=== PATIENT | female | born 1995 | race Caucasian/White ===

== ENCOUNTER 2021-09-20 14:11 | Inpatient (IN) | payer OTHER ==
[2021-09-20] MEDS ORDERED: Magnesium Sulfate 20 gm/500 ml 20 GM/500 ML BAG ONE (14:24)
[2021-09-20] MEDS ORDERED: hydrALAZINE 20 MG/ML VIAL ONE (14:24)
[2021-09-20] MEDS: Lactated Ringer's 1,000 ML IV SCH (14:30)
[2021-09-20] MEDS ORDERED: Promethazine HCl 25 MG/ML VIAL IM PRN ×2 (14:36→19:34)
[2021-09-20] MEDS ORDERED: Calcium Gluc 4.6 MEQ/10 ML (100 MG/ML) SLOW IVP PRN (14:36)
[2021-09-20] MEDS ORDERED: Ondansetron PF 4 MG/2 ML Vial IVP PRN ×2 (14:36→19:34)
[2021-09-20] MEDS ORDERED: hydrALAZINE 20 MG/ML VIAL SLOW IVP PRN (14:36)
[2021-09-20] MEDS ORDERED: Magnesium Sulfate 20 GM/WATER 500 ML BAG IVPB SCH (14:45)
[2021-09-20] MEDS ORDERED: Lidocaine 1% (PF) 30 ML VIAL SC PRN (14:53)
[2021-09-20] MEDS: Magnesium Sulfate 20 gm/500 ml 20 GM/500 ML BAG IVPB SCH ×2 (15:00→23:17)
[2021-09-20] MEDS ORDERED: Penicillin G Potassium 5 MILL.UNITS in Sodium Chloride 0.9% 100 ML IVPB SCH (15:00)
[2021-09-20] MEDS ORDERED: NS w/ Oxytocin 30 units 500 ML IV SCH (15:00)
[2021-09-20] MEDS ORDERED: NS w/ Oxytocin 30 units 500 ML IVPB SCH (15:00)
[2021-09-20] MEDS ORDERED: Bupivacaine 0.25% HCL 30 ML VIAL ONE (15:19)
[2021-09-20 16:27] LABS: Amphetamine Not Detected (NotDetected); Barbiturates Screen Not Detected (NotDetected); Benzodiazepine Screen Not Detected (NotDetected); Cocaine Metabolite Screen Not Detected (NotDetected); Methadone Not Detected (NotDetected); Methamphetamine Not Detected (NotDetected); Opiate Screen Not Detected (NotDetected); Oxycodone Screen Not Detected (NotDetected); Phencyclidine (PCP) Not Detected (NotDetected); THC/Cannabinoid Screen Not Detected (NotDetected); Tricyclic Screen Not Detected (NotDetected)
[2021-09-20 16:33] VITALS: BMI 34.6
[2021-09-20 16:38] LABS: Syphilis Antibody Nonreactive (Nonreactive); Syphilis Antibody Index 0.07 S/CO (<1.00 Non-Reactive)
[2021-09-20] MEDS ORDERED: Labetalol HCl 100 MG/20 ML VIAL ONE (16:47)
[2021-09-20 17:13] LABS: SARS-CoV-2 NAA Rapid Test Not Detected (NotDetected)
[2021-09-20 18:16] LABS: HIV (1/2) Antibody/Antigen Non-Reactive (NonReactive); HIV 1/2 INDEX 0.06 S/CO (<1.00)
[2021-09-20] MEDS ORDERED: Labetalol HCl 100 MG/20 ML VIAL SLOW IVP PRN (18:43)
[2021-09-20] MEDS ORDERED: Fentanyl 2 mcg/Bup 0.1% Cadd 100 ML ONE (18:52)
[2021-09-20] MEDS ORDERED: Hydrocerin (Eucerin) Cream 120 gm Jar TOP PRN (19:34)
[2021-09-20] MEDS ORDERED: ePHEDrine Sulfate 50 MG/10 ML VIAL SLOW IVP PRN (19:34)
[2021-09-20] MEDS ORDERED: Lactated Ringer's 500 ML IV PRN (19:34)
[2021-09-20] MEDS ORDERED: Naloxone HCl 0.4 mg/ml Vial IVP PRN ×2 (19:34)
[2021-09-20] MEDS ORDERED: Acetaminophen 325 MG TAB PO PRN (19:34)
[2021-09-20] MEDS ORDERED: diphenhydrAMINE 50 MG/ML VIAL IVP PRN (19:34)
[2021-09-20] MEDS ORDERED: Fentanyl 2 mcg/Bupivacaine 0.1% Cassette 100 ML EPIDURAL SCH (19:45)
[2021-09-20] MEDS ORDERED: Communication Order-Pharmacy FS SCH (19:45)
[2021-09-20] MEDS: Penicillin G 2.5 MILL.units 2.5 MILL.UNITS in Premix Bag 1 BAG IVPB SCH (20:20)
[2021-09-21] MEDS: Penicillin G 2.5 MILL.units 2.5 MILL.UNITS in Premix Bag 1 BAG IVPB SCH ×4 (00:39→20:12)
[2021-09-21] MEDS: Lactated Ringer's 1,000 ML IV SCH ×4 (05:00→21:26)
[2021-09-21] MEDS ORDERED: Famotidine/PF 20 mg/2ml Vial SLOW IVP PRN (05:07)
[2021-09-21] MEDS ORDERED: Bicitra 30 ML UDCUP PO PRN (05:07)
[2021-09-21] MEDS ORDERED: Carboprost 250 MCG/ML AMP IM PRN (05:10)
[2021-09-21] MEDS ORDERED: Diphenoxylate HCl/Atropine Tablet PO PRN (05:10)
[2021-09-21] MEDS ORDERED: Misoprostol 200 MCG TAB PR PRN (05:10)
[2021-09-21] MEDS ORDERED: Misoprostol 200 MCG TAB ONE ×2 (05:12→07:29)
[2021-09-21] MEDS ORDERED: Azithromycin 500 MG VIAL ONE (05:12)
[2021-09-21] MEDS ORDERED: Carboprost 250 MCG/ML AMP ONE ×2 (05:13→06:37)
[2021-09-21] MEDS ORDERED: Azithromycin 500 MG in Sodium Chloride 0.9% 250 ML 250 ML IVPB SCH (05:30)
[2021-09-21] MEDS ORDERED: NS w/ Oxytocin 30 units 500 ML IV SCH (05:30)
[2021-09-21] MEDS ORDERED: CEFAZOLIN 2 GM in Premix Bag 1 BAG IVPB SCH (05:30)
[2021-09-21] MEDS ORDERED: Oxytocin 10 UNITS/ML VIAL ONE (05:34)
[2021-09-21] MEDS ORDERED: Dexamethasone 4 mg/ml Vial ONE (05:34)
[2021-09-21] MEDS ORDERED: Ondansetron PF 4 MG/2 ML Vial ONE (05:34)
[2021-09-21] MEDS ORDERED: Tranexamic Acid 1,000 MG in Sodium Chloride 0.9% 250 ML 250 ML IVPB PRN (05:36)
[2021-09-21] MEDS ORDERED: Lidocaine 2% PF 100 mg/5 ml Syringe ONE (05:39)
[2021-09-21] MEDS ORDERED: PHENYLEPHRINE-NS 100 MCG/ML 10 ML SYRINGE ONE ×2 (06:01→06:22)
[2021-09-21] MEDS ORDERED: Phenylephrine 10 MG/ML VIAL ONE (06:01)
[2021-09-21] MEDS ORDERED: Tranexamic Acid 1,000 MG/10 ML VIAL ONE ×2 (06:18→07:01)
[2021-09-21] MEDS ORDERED: Ketorolac Tromethamine 30 MG/ML VIAL ONE (06:18)
[2021-09-21] MEDS ORDERED: ePHEDrine Sulfate 50 MG/10 ML VIAL ONE (06:20)
[2021-09-21] MEDS ORDERED: Morphine PF 10 MG/10 ML VIAL ONE (06:35)
[2021-09-21] MEDS ORDERED: Phenylephrine 40 MG/NS 250 ML 250 ML ONE (06:35)
[2021-09-21] MEDS ORDERED: Bupivacaine 0.25% HCL 30 ML VIAL ONE (06:37)
[2021-09-21] MEDS ORDERED: EPINEPHrine 1 MG/10 ML Abboject SYRINGE ONE (06:46)
[2021-09-21] MEDS ORDERED: PROPOFOL 20 ML ONE (06:55)
[2021-09-21] MEDS ORDERED: Succinylcholine 200 MG/10 ml SYRINGE FS ONE (06:55)
[2021-09-21 07:53] LABS: Platelet Count 231 10x3/uL (150-450)
[2021-09-21] MEDS ORDERED: Midazolam HCl 2 mg/2 ml Vial ONE (07:53)
[2021-09-21 08:10] LABS: D-Dimer Test 8.71 mg/L FEU (0.19-0.50); Fibrinogen 310 mg/dL (220-504); PTT 26.5 sec (22.0-33.0); Prothrombin Time 10.7 sec (9.5-12.1)
[2021-09-21] MEDS: Norepinephrine 8 MG/0.9% NS 250 ML IVPB SCH ×2 (08:30→17:37)
[2021-09-21] MEDS: Propofol 1,000 MG/100 ML VIAL IV PRN ×5 (08:40→21:58)
[2021-09-21 08:58] LABS: FSP-Qualitative ABNORMAL (Normal); FSP-Semiquantitative >=5 & <20 mcg/mL (Less than 5)
[2021-09-21] MEDS: fentaNYL Citrate-0.9 % NaCl/PF 100 ML IVPB SCH (09:00)
[2021-09-21 09:02] LABS: Hemoglobin 12.7 g/dL (12.0-15.5); MDiff Complete? YES; Mean Corpuscular HGB CONC 31.5 g/dL (32.0-36.0); Mean Corpuscular Hemoglobin 28.6 pg (27.0-33.0); Mean Corpuscular Volume 90.8 fl (81.6-98.3); Mean Platelet Volume 11.8 fl (7.4-10.4); Platelet Count 272 10x3/uL (150-450); RBC Distribution Width 18.7 % (11.5-14.5); Red Blood Cell (RBC) Count 4.44 10x6/uL (3.90-5.03); White Blood Cell (WBC) Count 24.1 10x3/uL (3.5-10.5)
[2021-09-21] MEDS ORDERED: Propofol BOLUS 1,000 MG/100 ML VIAL IV PRN (09:15)
[2021-09-21] MEDS ORDERED: DISCONTINUE PREVIOUS NARCOTIC PAIN MEDICATIONS AND BENZODIAZEPINES FS SCH (09:15)
[2021-09-21] MEDS ORDERED: Lorazepam 2 MG/ML VIAL SLOW IVP PRN (09:15)
[2021-09-21] MEDS ORDERED: Fentanyl BOLUS 250 ML IVPB PRN (09:15)
[2021-09-21] MEDS ORDERED: Morphine 2 MG/ML VIAL SLOW IVP PRN (09:15)
[2021-09-21 09:22] LABS: ALT (SGPT) 30 U/L (8-55); AST (SGOT) 35 U/L (5-34); Alkaline Phosphatase 110 U/L (40-110); Anion Gap 19 mmol/L (10-20); BUN (Urea Nitrogen) 11 mg/dL (7.0-18.7); Bilirubin, Total 1.7 mg/dL (0.2-1.2); Calc. Creatinine Clearance 155 mL/min (70-130); Calcium 6.8 mg/dL (7.8-10.44); Carbon Dioxide 13 mmol/L (22-29); Chloride 108 mmol/L (98-107); Globulin 2.6 g/dL (2.4-3.5); Glucose 169 mg/dL (70-105); Potassium 5.7 mmol/L (3.5-5.1); Protein, Total 5.6 g/dL (6.0-8.3); Sodium 134 mmol/L (136-145)
[2021-09-21 09:35] LABS: Band 4 % (5-11); Lymphocytes 3 % (21-51); Monocytes 6 % (0-10); Neutrophil 87 % (42-75)
[2021-09-21 09:36] LABS: Platelet Morphology Comment Appears Adequate
[2021-09-21 09:37] LABS: Anisocytosis SLIGHT = 6-15 cells (100X) (0-5/hpf)
[2021-09-21 09:39] LABS: Actual Bicarbonate (HCO3a) 18.4 mEq/L (22-28); Base Excess (BEa) -5.4 mEq/L (-2.0 to +3.0); CO2 Tension 30.4 mmHg (35.0-45.0); Calcium, Ionized (arterial) 0.94 mmol/L (1.12-1.30); Carboxyhemoglobin (COHb) 0.2 gm% (0.0-3.0); Hemoglobin (Hb) 12.1 g/dL (12.0-16.0); O2 Tension (PaO2), arterial 387.2 mmHg (80.0-100.0); Potassium - ABG Lab 4.7 mmol/L (3.70-5.30); Puncture Site LRA
[2021-09-21] MEDS ORDERED: Calcium Gluconate 4.6 MEQ in Sodium Chloride 0.9% 100 ML IVPB SCH (10:31)
[2021-09-21] MEDS ORDERED: Dextrose 50% Abboject 50 ML SYRINGE SLOW IVP SCH (10:32)
[2021-09-21] MEDS ORDERED: Albuterol Sulfate 1.25 MG/3 ML NEB NEB SCH (10:45)
[2021-09-21] MEDS ORDERED: Insulin Regular 300 UNITS/3 ML VIAL IVP SCH (10:45)
[2021-09-21 11:38] LABS: Anion Gap 13 mmol/L (10-20); BUN (Urea Nitrogen) 12 mg/dL (7.0-18.7); Calc. Creatinine Clearance 157 mL/min (70-130); Calcium 6.4 mg/dL (7.8-10.44); Carbon Dioxide 16 mmol/L (22-29); Chloride 111 mmol/L (98-107); Glucose 154 mg/dL (70-105); Potassium 4.2 mmol/L (3.5-5.1); Sodium 136 mmol/L (136-145)
[2021-09-21 12:24] LABS: Hemoglobin 10.6 g/dL (12.0-15.5); Mean Corpuscular HGB CONC 33.1 g/dL (32.0-36.0); Mean Corpuscular Hemoglobin 28.8 pg (27.0-33.0); Mean Platelet Volume 11.6 fl (7.4-10.4); Platelet Count 162 10x3/uL (150-450); RBC Distribution Width 17.1 % (11.5-14.5); Red Blood Cell (RBC) Count 3.68 10x6/uL (3.90-5.03); White Blood Cell (WBC) Count 18.5 10x3/uL (3.5-10.5)
[2021-09-21 12:38] LABS: Anion Gap 12 mmol/L (10-20); BUN (Urea Nitrogen) 12 mg/dL (7.0-18.7); Calc. Creatinine Clearance 161 mL/min (70-130); Calcium 6.5 mg/dL (7.8-10.44); Carbon Dioxide 16 mmol/L (22-29); Chloride 110 mmol/L (98-107); Glucose 177 mg/dL (70-105); Potassium 3.9 mmol/L (3.5-5.1); Sodium 134 mmol/L (136-145)
[2021-09-21] MEDS ORDERED: Morphine 4 MG/ML VIAL SLOW IVP PRN (12:45)
[2021-09-21] MEDS ORDERED: ceFAZolin 2 GM/DEX 5% 100 ML BAG IVPB SCH (14:00)
[2021-09-21] MEDS: Ampicillin/Sulbactam 3 GM in Sodium Chloride 0.9% 100 ML IVPB SCH ×2 (14:48→22:26)
[2021-09-21] MEDS: Pantoprazole 40 MG VIAL IVP SCH (14:48)
[2021-09-21 15:09] LABS: HBSAB Concentration 24.34 mIU/mL; Hep B Surf AB Reactive (NonReactive)
[2021-09-21 15:57] LABS: Hep B Surf Ag Non-Reactive S/CO (NonReactive)
[2021-09-21 16:03] LABS: HBSAg Index 0.23 S/CO (0-0.99)
[2021-09-21 17:32] LABS: Hemoglobin 9.8 g/dL (12.0-15.5); Mean Corpuscular HGB CONC 33.8 g/dL (32.0-36.0); Mean Corpuscular Hemoglobin 28.7 pg (27.0-33.0); Mean Corpuscular Volume 84.8 fl (81.6-98.3); Mean Platelet Volume 12.1 fl (7.4-10.4); Platelet Count 149 10x3/uL (150-450); RBC Distribution Width 16.8 % (11.5-14.5); Red Blood Cell (RBC) Count 3.42 10x6/uL (3.90-5.03); White Blood Cell (WBC) Count 17.7 10x3/uL (3.5-10.5)
[2021-09-21 17:35] LABS: Lactic Acid 2.8 mmol/L (0.5-2.2)
[2021-09-21 17:39] LABS: Magnesium 5.9 mg/dL (1.6-2.6)
[2021-09-21 18:06] LABS: Hemoglobin 10.2 g/dL (12.0-15.5); Mean Corpuscular HGB CONC 33.9 g/dL (32.0-36.0); Mean Corpuscular Hemoglobin 28.6 pg (27.0-33.0); Mean Corpuscular Volume 84.3 fl (81.6-98.3); Platelet Count 174 10x3/uL (150-450); RBC Distribution Width 16.6 % (11.5-14.5); Red Blood Cell (RBC) Count 3.57 10x6/uL (3.90-5.03); White Blood Cell (WBC) Count 21.7 10x3/uL (3.5-10.5)
[2021-09-21 18:55] LABS: Band 15 % (5-11); Lymphocytes 3 % (21-51); Monocytes 3 % (0-10); Neutrophil 79 % (42-75)
[2021-09-21 18:56] LABS: Giant Platelets SLIGHT; MDiff Complete? YES; Platelet Morphology Comment Appears Adequate; Polychromasia SLIGHT = 2-3 cells (100X) (0-2/hpf)
[2021-09-21] MEDS: Magnesium Sulfate 20 gm/500 ml 20 GM/500 ML BAG IVPB SCH (19:59)
[2021-09-21 20:29] LABS: Lactic Acid 2.1 mmol/L (0.5-2.2)
[2021-09-21 21:40] LABS: Hemoglobin 9.9 g/dL (12.0-15.5); Mean Corpuscular HGB CONC 33.8 g/dL (32.0-36.0); Mean Corpuscular Hemoglobin 28.3 pg (27.0-33.0); Mean Corpuscular Volume 83.7 fl (81.6-98.3); Mean Platelet Volume 11.8 fl (7.4-10.4); Platelet Count 183 10x3/uL (150-450); RBC Distribution Width 16.8 % (11.5-14.5); White Blood Cell (WBC) Count 23.3 10x3/uL (3.5-10.5)
[2021-09-21 21:45] LABS: Magnesium 5.6 mg/dL (1.6-2.6)
[2021-09-21 22:06] LABS: MDiff Complete? YES
[2021-09-22] MEDS: fentaNYL Citrate-0.9 % NaCl/PF 100 ML IVPB SCH (01:00)
[2021-09-22] MEDS: Propofol 1,000 MG/100 ML VIAL IV PRN ×2 (01:20→05:10)
[2021-09-22 02:57] LABS: Band 3 % (5-11); Lymphocytes 9 % (21-51); Monocytes 5 % (0-10); Neutrophil 83 % (42-75)
[2021-09-22 02:58] LABS: Toxic Granulation MODERATE
[2021-09-22 02:59] LABS: Dohle Bodies SLIGHT
[2021-09-22 03:00] LABS: Giant Platelets SLIGHT
[2021-09-22] MEDS: Ampicillin/Sulbactam 3 GM in Sodium Chloride 0.9% 100 ML IVPB SCH ×3 (05:10→22:11)
[2021-09-22] MEDS: Lactated Ringer's 1,000 ML IV SCH ×2 (09:24→16:53)
[2021-09-22] MEDS ORDERED: Morphine 4 MG/ML VIAL SLOW IVP PRN (09:43)
[2021-09-22] MEDS ORDERED: HYDROcodone/Acetaminophen 5/325 mg Tablet PO PRN ×5 (09:44→16:55)
[2021-09-22] MEDS: Pantoprazole 40 MG VIAL IVP SCH (12:31)
[2021-09-22] MEDS ORDERED: Zolpidem Tartrate 5 MG TAB PO PRN ×2 (14:01→16:55)
[2021-09-22] MEDS ORDERED: Measles/Mumps/Rubella 10 MCG/0.5 ML VIAL SC ONE (14:01)
[2021-09-22] MEDS ORDERED: hydrALAZINE 20 MG/ML VIAL SLOW IVP PRN ×2 (14:01→16:55)
[2021-09-22] MEDS ORDERED: Lanolin Ointment 7 GM TUBE TOP PRN ×2 (14:01→16:55)
[2021-09-22] MEDS ORDERED: Simethicone Chewable 80 MG TAB PO SCH (14:01)
[2021-09-22] MEDS ORDERED: Boostrix 0.5 ML (Tdap) VIAL IM ONE (14:01)
[2021-09-22] MEDS ORDERED: Ferrous Sulfate 325 MG TAB PO SCH (14:30)
[2021-09-22] MEDS ORDERED: Docusate Calcium (SURFAK) 240 MG CAP PO SCH ×2 (14:45→21:00)
[2021-09-22 15:10] LABS: Magnesium 3.5 mg/dL (1.6-2.6)
[2021-09-22] MEDS ORDERED: Ondansetron PF 4 MG/2 ML Vial IVP PRN (16:55)
[2021-09-22] MEDS: Ibuprofen 800 MG TAB PO SCH (22:10)
[2021-09-22] MEDS: Ferrous Sulfate 325 MG TAB PO SCH (22:10)
[2021-09-22] MEDS: Docusate Calcium (SURFAK) 240 MG CAP PO SCH (22:11)
[2021-09-23 04:48] LABS: Hemoglobin 7.8 g/dL (12.0-15.5); Mean Corpuscular HGB CONC 33.6 g/dL (32.0-36.0); Mean Corpuscular Hemoglobin 28.7 pg (27.0-33.0); Mean Corpuscular Volume 85.3 fl (81.6-98.3); Platelet Count 166 10x3/uL (150-450); RBC Distribution Width 17.5 % (11.5-14.5); Red Blood Cell (RBC) Count 2.72 10x6/uL (3.90-5.03); White Blood Cell (WBC) Count 15.8 10x3/uL (3.5-10.5)
[2021-09-23] MEDS: Ibuprofen 800 MG TAB PO SCH ×3 (05:13→21:27)
[2021-09-23] MEDS: Ampicillin/Sulbactam 3 GM in Sodium Chloride 0.9% 100 ML IVPB SCH ×3 (05:13→21:27)
[2021-09-23] MEDS: Ferrous Sulfate 325 MG TAB PO SCH ×2 (08:52→21:26)
[2021-09-23] MEDS: Prenatal Vitamin 1 TAB PO SCH (08:52)
[2021-09-23] MEDS: Docusate Calcium (SURFAK) 240 MG CAP PO SCH ×2 (08:52→21:27)
[2021-09-23] MEDS ORDERED: Furosemide 20 MG/2 ML VIAL SLOW IVP SCH (11:00)
[2021-09-23 12:43] LABS: Hemoglobin 9.1 g/dL (12.0-15.5); Mean Corpuscular HGB CONC 33.8 g/dL (32.0-36.0); Mean Corpuscular Hemoglobin 28.7 pg (27.0-33.0); Mean Corpuscular Volume 84.9 fl (81.6-98.3); Mean Platelet Volume 11.5 fl (7.4-10.4); Platelet Count 184 10x3/uL (150-450); RBC Distribution Width 17.6 % (11.5-14.5); Red Blood Cell (RBC) Count 3.17 10x6/uL (3.90-5.03); White Blood Cell (WBC) Count 17.7 10x3/uL (3.5-10.5)
[2021-09-23] MEDS ORDERED: Labetalol HCl 100 MG/20 ML VIAL SLOW IVP PRN (15:18)
[2021-09-23] MEDS ORDERED: Sodium Chloride 0.9% 100 ML ONE (21:24)
[2021-09-24] MEDS: Ampicillin/Sulbactam 3 GM in Sodium Chloride 0.9% 100 ML IVPB SCH ×3 (04:42→21:41)
[2021-09-24] MEDS: Ibuprofen 800 MG TAB PO SCH ×3 (04:45→21:40)
[2021-09-24] MEDS ORDERED: Furosemide 20 MG/2 ML VIAL SLOW IVP SCH (06:15)
[2021-09-24] MEDS: Prenatal Vitamin 1 TAB PO SCH (08:33)
[2021-09-24] MEDS: Docusate Calcium (SURFAK) 240 MG CAP PO SCH ×2 (08:33→21:40)
[2021-09-24] MEDS: Ferrous Sulfate 325 MG TAB PO SCH ×2 (08:34→21:39)
[2021-09-25] MEDS: Ibuprofen 800 MG TAB PO SCH (06:33)
[2021-09-25] MEDS: Ampicillin/Sulbactam 3 GM in Sodium Chloride 0.9% 100 ML IVPB SCH ×3 (06:34→21:46)
[2021-09-25] MEDS ORDERED: hydrALAZINE 20 MG/ML VIAL SLOW IVP PRN (07:41)
[2021-09-25] MEDS ORDERED: hydrALAZINE 20 MG/ML VIAL SLOW IVP SCH (07:45)
[2021-09-25] MEDS ORDERED: NIFEdipine XL 30 MG TAB PO SCH (07:45)
[2021-09-25] MEDS: Ferrous Sulfate 325 MG TAB PO SCH ×2 (08:09→21:47)
[2021-09-25] MEDS: Docusate Calcium (SURFAK) 240 MG CAP PO SCH ×2 (08:09→20:45)
[2021-09-25] MEDS: Prenatal Vitamin 1 TAB PO SCH (08:09)
[2021-09-25] MEDS: Labetalol 100 MG TAB PO SCH ×2 (13:55→20:45)
[2021-09-26] MEDS: Ampicillin/Sulbactam 3 GM in Sodium Chloride 0.9% 100 ML IVPB SCH (05:48)
[2021-09-26] MEDS: Docusate Calcium (SURFAK) 240 MG CAP PO SCH ×2 (08:36→21:42)
[2021-09-26] MEDS: Prenatal Vitamin 1 TAB PO SCH (08:36)
[2021-09-26] MEDS: Ferrous Sulfate 325 MG TAB PO SCH ×2 (08:37→21:42)
[2021-09-26] MEDS: NIFEdipine XL 30 MG TAB PO SCH (08:37)
[2021-09-26] MEDS: Labetalol 100 MG TAB PO SCH ×3 (08:37→21:43)
[2021-09-26] MEDS: Acetaminophen 500 MG TAB PO PRN ×2 (08:39→21:42)
[2021-09-26] MEDS ORDERED: NIFEdipine XL 30 MG TAB PO SCH (09:00)
[2021-09-27 07:48] VITALS: BP 145/86; TEMP 98.1
[2021-09-27] MEDS: Docusate Calcium (SURFAK) 240 MG CAP PO SCH (08:33)
[2021-09-27] MEDS: Prenatal Vitamin 1 TAB PO SCH (08:33)
[2021-09-27] MEDS: Ferrous Sulfate 325 MG TAB PO SCH (08:34)
[2021-09-27] MEDS: NIFEdipine XL 30 MG TAB PO SCH (08:34)
[2021-09-27] MEDS: Labetalol 100 MG TAB PO SCH (08:34)
== END 2021-09-27 12:00 | disposition home or self-care (01) | DRG 786 ==
LOC: UNDOADMIN 14:11 → CSHLD 14:11 → CSHIMCU 14:37 → UNDOADMIN 09-21 05:39 → CSHPED 09-22 18:06
PROVIDERS: ADMIT Obstetrics & Gynecology; ATTEND Obstetrics & Gynecology
PROC: 10D00Z1 Extraction of Products of Conception, Low, Open Approach (ICD-10-PCS; principal; 2021-09-21)
PROC: 10907ZC Drainage of Amniotic Fluid, Therapeutic from Products of Conception, Via Natural or Artificial Opening (ICD-10-PCS; 2021-09-21)
PROC: 5A1945Z Respiratory Ventilation, 24-96 Consecutive Hours (ICD-10-PCS; 2021-09-21)
PROC: 3E0333Z Introduction of Anti-inflammatory into Peripheral Vein, Percutaneous Approach (ICD-10-PCS; 2021-09-21)
PROC: 3E033XZ Introduction of Vasopressor into Peripheral Vein, Percutaneous Approach (ICD-10-PCS; 2021-09-21)
PROC: 30233M1 Transfusion of Nonautologous Plasma Cryoprecipitate into Peripheral Vein, Percutaneous Approach (ICD-10-PCS; 2021-09-21)
PROC: 30233N1 Transfusion of Nonautologous Red Blood Cells into Peripheral Vein, Percutaneous Approach (ICD-10-PCS; 2021-09-21)
PROC: 30233R1 Transfusion of Nonautologous Platelets into Peripheral Vein, Percutaneous Approach (ICD-10-PCS; 2021-09-21)
DX: O14.14 Severe pre-eclampsia complicating childbirth (principal); R65.21 Severe sepsis with septic shock; D62 Acute posthemorrhagic anemia; O68 Labor and delivery complicated by abnormality of fetal acid-base balance; Z3A.35 35 weeks gestation of pregnancy; Z37.0 Single live birth; O69.81X0 Labor and delivery complicated by cord around neck, without compression, not applicable or unspecified; Z91.041 Radiographic dye allergy status; O76 Abnormality in fetal heart rate and rhythm complicating labor and delivery; O42.013 Preterm premature rupture of membranes, onset of labor within 24 hours of rupture, third trimester; O77.0 Labor and delivery complicated by meconium in amniotic fluid; O90.81 Anemia of the puerperium; O85 Puerperal sepsis; E87.5 Hyperkalemia; O86.12 Endometritis following delivery; O72.1 Other immediate postpartum hemorrhage; Z20.822 Contact with and (suspected) exposure to COVID-19
CPT/HCPCS: 36415; 36430; 36600; 51702; 71045; 74018; 80053; 80306; 81003; 82805; 83605; 83735; 85025; 85027; 85049; 85300; 85362; 85379; 85384; 85610; 85730; 86706; 86762; 86780; 86850; 86900; 86901; 87070; 87205; 87340; 87389; 88307; 93005; 93010; 94002; 94003; 94640; 94760; C9113; J0171; J0295; J0360; J0610; J1100; J1815; J1885; J1940; J2250; J2274; J2370; J2405; J2540; J2590; J2704; J3475; J3490; J7120; P9016; P9035; P9048; S0020; U0002